=== PATIENT | female | born 1950 | race Caucasian/White ===

== ENCOUNTER → 2022-01-29 07:31 | Outpatient (CLI) | payer OTHER, SELFPAY ==
--- NOTE | 2022-01-29 | DI.CT.S_ITS ---
PROCEDURE: CT LUMBAR SPINE WO CON INDICATIONS: Spinal stenosis, lumbar region without TECHNIQUE: Noncontrast 3 mm thick sections acquired from the T12 level to the sacrum. Sagittal and coronal reformats were constructed. 0.8 mm straight axial images were reformatted. For radiation dose reduction, the following was used: automated exposure control. COMPARISON: [facility], CR, XR LUMBAR SPINE 2 OR 3 VIEWS, 03/10/2021, 15:40. [facility], CR, XR LUMBAR SPINE 2 OR 3 VIEWS, 11/03/2021, 11:48. [facility], MR, MR LUMBAR SPINE WITHOUT CONTRAST, 06/29/2021, 10:09. FINDINGS: Image quality: Excellent. Bones: No acute vertebral body compression fractures. There is a remote T12 fracture again seen, with approximately 50% loss of height centrally. Mild posterior displacement of fracture fragments can be seen, measuring 3-4 mm. No suspicious lytic or blastic bony lesions. No pars defects. Minimal retrolisthesis can be seen at T12-L1 and at L1-L2. Mild grade 1 L4-5 anterolisthesis is seen, without associated pars defects. Multiple levels irregularity and degenerative change can be seen between spinous processes. T11-T12: The disc space is overall well preserved. Endplate irregularity and sclerosis can be seen. Moderate bilateral neural foraminal narrowing can be seen, right worse than left. Mild central canal narrowing is seen. T12-L1: The disc space is well preserved. Posteriorly projected endplate osteophytes are seen. At least moderate bilateral neural foraminal narrowing can be seen. Moderate central canal narrowing is seen. L1-L2: The disc height is well preserved. Mild generalized disc bulge is seen. Moderate to severe bilateral neural foraminal narrowing can be seen. Mild central canal narrowing is seen. L2-L3: Mild loss of disc height is seen. Vacuum disc phenomenon is seen at this level. At least moderate disc bulge is seen. Posteriorly projected endplate osteophytes are seen. Mild facet joint hypertrophy is seen. Associated hypertrophy of the ligamentum flavum can be seen. Moderate bilateral neural foraminal narrowing is seen. At least moderate central canal narrowing is seen. L3-L4: The disc height is relatively well preserved. Vacuum disc phenomenon is seen at this level. Moderate disc bulge is seen, which is eccentric to the left. Moderate facet joint hypertrophy is seen. Moderate to severe bilateral neural foraminal narrowing can be seen, left worse than right. Moderate central canal narrowing is seen. L4-L5: The disc height is well preserved. Moderate generalized disc bulge is seen. Prominent facet hypertrophy is seen at this level. There is at least moderate bilateral neural foraminal narrowing seen. Moderate central canal narrowing is seen. L5-S1: The disc height is well preserved. There is at least moderate right-sided and moderate left-sided neural foraminal narrowing. There is at least moderate left-sided and mild right-sided neural foraminal narrowing seen at this level. Mild central canal narrowing is seen. Soft tissues: No retroperitoneal masses or hematomas. Visualized aorta is normal in caliber. Nonobstructing left-sided kidney stones are seen, with the largest measuring 5 mm and 275 Hounsfield units. Minimal colonic diverticulosis is seen, without findings of active diverticulitis. IMPRESSION: Multiple levels of lumbar spine degenerative change are seen, which are similar to the prior outside MRI. Remote T12 compression deformity. Incidental note is made of: Nonobstructing left-sided kidney stones Diverticulosis, without active diverticulitis Dictated by: Angel Luis Lau M.D. on 01/29/2022 at 8:50 Approved by: Angel Luis Lau M.D. on 01/29/2022 at 8:57
== END ==
PROVIDERS: PCP Family Medicine; Referring Provider Orthopaedic Surgery Orthopaedic Surgery of the Spine; Visit Provider Orthopaedic Surgery Orthopaedic Surgery of the Spine
DX: M48.061 Spinal stenosis, lumbar region without neurogenic claudication (principal); M43.8X4 Other specified deforming dorsopathies, thoracic region
CPT/HCPCS: 72131

== ENCOUNTER 2022-01-30 10:30 | Observation (INO) | payer OTHER, SELFPAY ==
[2022-01-20 09:44] VITALS: BMI 28.1
[2022-01-29] VITALS (18 sets, daily range): BP systolic 78–132; BP diastolic 34–82; PULSE 78–114; RESP 8–16; TEMP 36.1–36.6; O2SAT 85–98; BMI 28.1
[2022-01-29] MEDS: LACTATED RINGERS 1,000 ML 42 ML IV ×3 (08:56→16:23)
[2022-01-29 09:26] LABS: COVID19 -Nasal RAPID Negative (Negative)
--- NOTE | 2022-01-29 11:08 | PM.PREOP ---
Pre-operative Note COVID-19 COVID-19 status: Negative Result date/Date tested (Pos, Neg/Pending): 01/28/22 Criteria for continued procedure: Expected advancement of disease process, Possibility delay results in more complex future surgery or treatment, Increased loss of function, Continuing or worsening of significant or severe pain, Deterioration of the patient's condition or overall health and Delay expected to result in less-positive ultimate med/surg outcome Interval Note History & Physical reviewed/Exam performed by Physician: Yes Changes to H&P: No
--- NOTE | 2022-01-29 11:45 | PM.OP.1 ---
Operative Date/Time/Diagnoses Date of procedure: 01/29/22 Time of procedure: 12:00 Pre-op diagnosis: 1. L3-4, L4-5, L5-S1 spinal stenosis 2. Lumbar post laminectomy syndrome Post-op diagnosis: same Procedure & Clinicians Procedure: 1. L3-4, L4-5, L5-S1 Postero-lateral and posterior interbody fusion 2. L3-4, L4-5, L5-S1 interbody cage placement. 3. L3-4, L4-5, L5-S1 decompressive laminectomy with bilateral facetecomies 4. L3-4, L4-5, L5-S1 Posterior segmental instrumentation 5. Bowie of bone marrow from iliac crest 6. Utilization of microsurgical technique and operating microscope 7. Utilization of robotic navigation Same procedure as scheduled: Yes Indications: Patient has been having chronic back pain and worsening lumbar radiculopathy. Patient failed multiple conservative management with worsening pain weakness and numbness in her lower extremity. Patient has been having difficulty performing activity of daily living. After discussing risks benefits of treatment options, patient elected proceed with surgery. Surgeon: Erin Pacheco Corner Block Cutter: Juliana Hinton Click Yes if Unassisted: No Anesthesia Type: General Operative Notes Closure Type: primary Specimen(s): none sent Prosthetic devices, grafts, tissues, transplants, or devices: Globus CREO screws, Rise cages Applied: catheter Estimated Blood Loss (mL): 150 Blood products transfused: none Procedure in detail: Patient was seen in the preoperative area. Risks and benefits of the surgery was discussed with the patient. Informed consent was obtained from the patient and placed in the chart. Surgical site was marked. Patient was taken to the operative room. General anesthesia was administered. Prophylactic antibiotic was given to the patient less than 30 min before the incision was made. Patient was placed into a prone position on the Zachary table. Patient's back was then prepped and draped in the sterile fashion. Time-out was performed at this time. After patient was prepped and draped, patient's PSIS was palpated and marked bilaterally. Small 1 cm incision was made over the PSIS for placement of the reference probes. Two trocar was placed into the PSIS 1 on each side. The reference probe was attached to the trocar of the reference apparatus. At this time the C-arm imaging was used to confirm AP and lateral of L3-4, L4-L5, L5-S1 vertebrae and merged the C-arm imaging using the [employer] robotic navigation system with the CT of the lumbar spine. After successful merging was completed and confirmed, skin marker was used to ezra out the skin incision using the [employer] robotic arm. Bilateral incision was made at this time. Pre templated trajectory was used and guided using the [employer] robotic navigation system for bilateral L3, L4, L5, S1 pedicle screw placement. This was done by using the robotic arm to guide the high-speed bur to make a cortical entry point. Next a drill was placed also using the robotic arm and guided using the navigation system drilling partially through bilateral L3, L4, L5 and S1 pedicles. Next L3, L4, L5, S1 pedicle screws it was pre templated and measured was placed onto the power concrete mixing truck driver and inserted into the pedicles bilaterally. After all 8 screws were placed C-arm imaging was taken of both AP and lateral to confirm the placement. Excellent placement of the screws were confirmed and a matched precisely with the pre planned screw placement using the navigation system. MARs retractor was inserted using [employer] guidence. Globus MARS retractors was placed inside the incision and docked onto the L3, L4 and L5 lamina. Using microsurgical technique and operating microscope, a L3, L4, L5 laminectomy and L3-4, L4-5, L5-S1 facetectomy was performed using a Kerrison rongeur. Patient was found have severe lateral recess and neural foramen stenosis which was fully decompressed after the laminectomy facetectomy. More than 75% of the facets were removed during the process of decompression rendering L3-4, L4-5, L5-S1 level grossly unstable and required a fusion procedure at the same time. The disc space at L3-4, L4-5, L5-S1 was identified, and a total diskectomy was performed at L3-4, L4-5, L5-S1 level. The endplates were decorticated using a rasp and shaver. The total diskectomy and decortication was performed at L3-4, L4-5, L5-S1 level in order to to accomplish a L3-4, L4-5, L5-S1 fusion. The local bone from the laminectomy and facetectomy was saved for local bone grafting. After the total diskectomy and decortication was completed, Trifecta bone graft material was combined with local bone that was harvested earlier. At this time, a separate skin is incision was made over the iliac crest. A Jamshidi needle was inserted into the iliac crest through a separate skin incision. 5 cc of bone marrow aspiration was obtained through the separate skin incision using a Jamshidi needle from the iliac crest. The bone marrow aspiration was combined with local bone and the Trifecta bone grafting material. The bone grafting material was placed into the L3-4, L4-5, L5-S1 interbody space along with a expandable cage. The cage was expanded to its maximum height using the torque limiting screwdriver. The disc preparation as well as the cage insertion were also performed under navigation guidance. After the cage was placed, AP and lateral C-arm imaging was taken to confirm placement of the cage and excellent position was confirmed. Globus MARS retractor was inserted and docked onto the L3-4, L4-5, L5-S1 posterolateral gutter on the right side. Using the power drill, posterior-lateral decortication was performed at L3-4, L4-5, L5-S1 level until bleeding cortical bone was identified. The remaining bone grafting material was placed into the L3-4, L4-5, L5-S1 posterior lateral gutter he order to accomplish posterolateral fusion at the L3-4, L4-5, L5-S1 level. At this time the tulips were attached to the L3, L4, L5, S1 pedicle screw shanks. After measuring the length of the rods, they were inserted into the tulips of the pedicle screws and locked in place using locking caps and torque limiting screwdriver bilaterally. Total 6 caps and 2 titanium rods was used in order to complete the posterior instrumentation construct. After all the hardware was placed, and confirmed with AP and lateral C-arm imaging, the wound was then irrigated with sterile normal saline and packed with Ray-Baldev gauze for 3 min to accomplish hemostasis. After the gauze was removed the deep fascia was closed with #1 Vicryl suture. The subcutaneous layer was closed with 2-0 Vicryl. The skin was closed with skin lia. Patient tolerated the procedure well. There were no complications. Neuro monitoring system was used to monitor patient's neurologic status throughout entire procedure. There was no disturbance of the neural monitoring signals throughout the case. Complications: none Post-operative Condition: stable Disposition: PACU Plan for aftercare: Admit to inpatient hospital
--- NOTE | 2022-01-29 12:38 | SUR.OPER ---
Addendum entered by Marlene Cartwright R.N. 01/29/22 13:44: Gel between heels. Original Note: Prone on spine table, head in foam head support, padded chest and pelvic supports, gel pad at knees, lower legs supported by pillows; nipples, genitalia and toes free of pressure, arms secured on foam padded arm boards at <90 degrees abduction. Tape over blanket at thigh secured to table.
[2022-01-29] MEDS: ACETAMINOPHEN IV 1,000 MG/100 ML VIAL 400 MG IV (12:45)
[2022-01-29] MEDS: CEFAZOLIN 2 GM/20 ML SYRINGE IV ×2 (13:06→21:52)
--- NOTE | 2022-01-29 13:28 | SUR.OPER ---
During imaging before incision, there was an equipment connection issue between the robot & the c-arm, causing a 20 min delay. Issue was resolved.
[2022-01-29] MEDS: BUPIVACAINE LIPOSOME 266 MG/20 ML VIAL INJ (16:23)
[2022-01-29] MEDS: BUPIVACAINE 0.25% (PF) 30 ML, EPINEPHrine 0.3 MG INJ (16:23)
--- NOTE | 2022-01-29 16:44 | DI.RAD.S_ITS ---
PROCEDURE: XR LUMBAR SPINE 2-3V INDICATIONS: L3-4, L4-5, L5-S1 TLIF TECHNIQUE: 2 intraoperative fluoroscopic views of the lumbar spine were acquired. COMPARISON: None. FINDINGS: Intraoperative fluoroscopic images shows posterior fusion and intervertebral spacer placement at L3-4, L4-5 and L5-S1 levels. IMPRESSION: Fluoro guidance was provided intraoperatively for TLIF of L3-4 through L5-S1 levels. Dictated by: John Perry M.D. on 01/29/2022 at 16:52 Approved by: John Perry M.D. on 01/29/2022 at 16:52
[2022-01-29] MEDS: fentaNYL 100 MCG/2 ML INJ IV (17:10)
[2022-01-29] MEDS: HYDROMORPHONE 2 MG INJ IV ×3 (17:15→17:39)
[2022-01-29] MEDS: ONDANSETRON 4 MG/2 ML INJ IV (17:23)
[2022-01-29] MEDS: hydrOXYzine 50 MG/ML INJ 25 MG IM (17:31)
[2022-01-29] MEDS: OXYCODONE IR 5 MG TABLET PO (17:38)
[2022-01-29] MEDS: SENNOSIDES 8.6 MG TABLET 17.2 MG PO (21:50)
[2022-01-29] MEDS: SODIUM CHLORIDE 0.9% 1,000 ML 100 ML IV (21:50)
[2022-01-29] MEDS: ATORVASTATIN 20 MG TABLET PO (21:50)
[2022-01-29] MEDS: DOCUSATE 100 MG CAPSULE PO (21:51)
[2022-01-29] MEDS: GABAPENTIN 100 MG CAPSULE 200 MG PO (21:51)
[2022-01-29] MEDS: OXYCODONE IR 5 MG TABLET 10 MG PO (21:51)
[2022-01-29] MEDS: hydrOXYzine pamoate 25 MG CAPSULE PO (21:52)
[2022-01-30] VITALS (7 sets, daily range): BP systolic 96–116; BP diastolic 47–66; PULSE 70–92; RESP 15–20; TEMP 36.2–38.1; O2SAT 95–100
[2022-01-30] MEDS: SODIUM CHLORIDE 0.9% 1,000 ML 100 ML IV (03:16)
[2022-01-30] MEDS: CEFAZOLIN 2 GM/20 ML SYRINGE IV (04:22)
[2022-01-30 06:58] LABS: Hematocrit 31.7 % (36-46); Hemoglobin 10.9 g/dL (12.0-16.0)
[2022-01-30] MEDS: CITALOPRAM 10 MG TABLET 20 MG PO (08:30)
[2022-01-30] MEDS: DOCUSATE 100 MG CAPSULE PO ×2 (08:30→21:43)
[2022-01-30] MEDS: OXYCODONE IR 5 MG TABLET 10 MG PO ×5 (08:30→21:42)
[2022-01-30] MEDS: estradioL 1 MG TABLET 0.5 MG PO (08:36)
--- NOTE | 2022-01-30 09:40 | PT.IIE ---
Current Diagnoses Spondylolisthesis, lumbar region (01/29/22) Other spondylosis with radiculopathy, lumbosacral region (01/29/22) Spinal stenosis, lumbar region with neurogenic claudication (01/29/22) Surgery Performed Operation Date: 01/29/22 10:45 Actual Procedures p L3-4, L4-5, L5-S1 TLIF w. posterior instrumentation-Robot - Erin Pacheco MD Medical History (Last Reviewed 01/30/22 @ 11:53 by Juliana Hinton PA-C) Anxiety COVID-19 virus infection (~10/2021) Hearing impaired HLD (hyperlipidemia) HTN (hypertension) Neuropathy Osteoarthritis Sciatica Seasonal allergies Spinal stenosis Physical Therapy Inpatient Evaluation/Re-Eval M1 PT/OT-IP Prior Functional Status Start: 01/30/22 12:37 Freq: NEEDED Status: Active Protocol: Document 01/30/22 09:40 AB (Rec: 01/30/22 12:50 AB [id number]) Medical Review Prior Functional Status Medical History Reviewed Yes Communication able to make needs known Mobility and Gait pt stated that she is independent with all mobilities and ambulation without AD Social History Household Members spouse Living Arrangements House Number of Floors (Floors) One Floor Number of Stairs To Enter/Railing? no steps to enter Home Environment Standard Height Toilet,Walk in Shower,Built-In Shower Seat Home Equipment Front Wheel Walker,Four Wheel Walker,Bedside Commode,Hand Held Shower,Grab Bars In Shower Additional Social History Comment pt has an adjustable bed pt stated that she has a FWW for indoor use and 4WW for outdoor use M2 PT-IP Current Condition Start: 01/30/22 12:37 Freq: NEEDED Status: Active Protocol: Document 01/30/22 09:40 AB (Rec: 01/30/22 12:50 AB [id number]) Physical Therapy Current Condition Current Condition Evaluation Date 01/30/22 Treatment Diagnosis s/p L3-4,4-5, L5-S1 TLIF; difficulty in walking Onset Date 01/29/22 M3 PT-IP Subjective Start: 01/30/22 12:37 Freq: NEEDED Status: Active Protocol: Document 01/30/22 09:40 AB (Rec: 01/30/22 12:50 AB [email or web address]) Subjective Physical Therapy Visit Type Type Initial Evaluation Visit Start Time 09:40 Visit Stop Time 10:30 Total Visit Minutes 50 Number of COAL PASSER Visits 0 Physical Therapy Visit Comments Patient Comments agreeable to do PT Therapy Pain Assessment Pain When Pain Assessed At Rest Pain Present Pain Present Pain Reported Location Lower Back Intensity 2 Scale Used Numeric (0 - 10) Pain Management Techniques Apply Cold,Distraction, Modification of Treatment,Re- positioning,Timing of Activity with Medications Left Lower Back Scale Used Numeric (0 - 10) M4 PT-IP Mobility and Gait Start: 01/30/22 12:37 Freq: NEEDED Status: Active Protocol: Document 01/30/22 09:40 AB (Rec: 01/30/22 12:50 AB [id number]) PT-Bed Mobility Assessment Rolling Type of Rolling Log Rolling Level of Assist Minimal Assistance Supine to Sit Supine to Sit Moderate Assistance,1 Person Assistance PT-Transfer Assessment Sit to and From Stand Sit to and from Stand Minimal Assistance,1 Person Assistance,Use of Upper Extremities Equipment Transfer Assistive Device Gait Belt,Front Wheeled Walker Orthotic/Prosthetic Devices or Brace: No Transfers Transfer Destination Chair Transfer Technique ambulated Transfer Ability Level of Assist Minimal Assistance,1 Person Assistance,Use of Upper Extremities Comments Mobility Comments spouse in room with pt. educated pt and sposue on back precautions and log roll bed mobility. BP initially in sidelyin/38. repositioned pt to supine. BP : 106/52. completed supine to sit log roll mod A and max cues. pt able to sit on EOB SBA. BP: 111/45. pt sat for ~ 2 more minutes and BP checked again: 99/45. no c/o dizziness/lightheadedness. completed sit to stand min A and cues and ambulated ~ 10 ft using FWW min A and pt sat on chair. BP checked: 116/53. pt agreed to ambulate more. completed sit to stand from chair min A and max cues. pt is GRAYLING and also has difficulty following directions. ambulated in room using FWW ~ 40 ft min A and cues. pt agreed to sit on the chair. positioned. call light and table placed within reach. caregiver training set up at ~ 1 to 130 pm this afternoon. Gait Assessment Gait Gait Assistance Required: Minimum Assistance Distance (Feet) 40 Able to Maintain Weight Bearing Status Yes During Gait Assistive Devices Assistive Device Gait Belt,Front Wheeled Walker Orthotic/Prosthetic Devices or Brace: No Gait Deviations General Gait Pattern Decreased Stride Length, Decreased Feet Clearance Factors Limiting Gait Function Factors Limiting Gait Function Decreased Activity Tolerance, Decreased Strength,Difficulty Following Directions,Limited Range of Motion,Pain,Poor Balance,Poor Safety Awareness PT-Balance Assessment Sitting Balance and Reactions Static Sitting Balance Ability Good Dynamic Sitting Balance Ability Good Standing Balance and Reactions Static Standing Balance Ability Fair Dynamic Standing Balance Ability Fair Device Used FWW M5 PT-IP Objective Assessments Start: 01/30/22 12:37 Freq: NEEDED Status: Active Protocol: Document 01/30/22 09:40 AB (Rec: 01/30/22 12:50 AB [email or web address]) Orientation Orientation/Cognition Level of Alertness Alert Orientation Name,Situation Language Function Ability No Deficits Noted Safety Awareness Decreased Safety Awareness Memory Description Short Term Impaired Gross Range of Motion Lower Extremity ROM Assessment Within Functional Limits Strength Lower Extremity Strength Assessment Right Impaired Hip 3+/5 Knee 4-/5 Coordination Assessment Gross Coordination Gross Coordination WNL Sensation Assessment Sensation Gross Sensation WNL Muscle Tone Muscle Tone WNL Yes M6 PT-IP Treatment Start: 01/30/22 12:37 Freq: NEEDED Status: Active Protocol: Document 01/30/22 09:40 AB (Rec: 01/30/22 12:50 AB [email or web address]) Physical Therapy Treatment Education Education Provided Precautions,Weight Bearing Status,Post-Op Packet,Safety M7 PT-IP Assessment and Plan Start: 01/30/22 12:37 Freq: NEEDED Status: Active Protocol: Document 01/30/22 09:40 AB (Rec: 01/30/22 12:50 AB [email or web address]) PT Summary Assessment and Plan Potential Rehabilitation Potential Fair Status of Condition at Evaluation Evolving Summary Impairments Pain,ROM,Strength,Balance, Coordination,Sensation,Tone, Cognition,Bed Mobility, Transfers,Gait,Activity Tolerance Assessment Summary pt requiring mod A for bed mobility and min A for ambulation using FWW. caregiver training set up for this afternoon with spouse. will continue to assess progress for safe d/c. Goals Bed Mobility Goal Independent Transfer Goal Independent,Front Wheeled Walker Gait Goal Independent,Front Wheel Walker Gait Distance 200 Other Goals ambulation using 4WW SBA 250 ft Days to Meet Goals 5 Frequency of Treatment Frequency Of Treatment Twice a Day Treatment Plan Physical Therapy Treatment Plan Bed Mobility Training,Transfer Training,Gait Training, Therapeutic Exercise,Balance Retraining,Post Op Education, Discharge Planning,Hot or Cold Pack,Neuromuscular Re-ed, Coordination Retraining,Manual Therapy Precautions Lumbar Precautions Log Roll,No Twisting,Limit Bending,Lifting Restriction of 10 lbs,Gait Belt above Incisional Area Recommendations To Nursing Amount of Assist Needed 1 Person Assist Discharge Recommendations PT Discharge Recommendations Home with Assistance Transportation Needs at Discharge Private Vehicle
--- NOTE | 2022-01-30 11:51 | PM.PNPO.1 ---
Subjective Subjective Date Patient Seen: 01/30/22 Time Patient Seen: 11:52 Interval history: Patient is complaining of [id number] low back pain this morning. The oxy is helping significantly. She is working with physical therapy. Her is at bedside. She has not had her catheter out yet. Her plan is to discharge home tomorrow. She denies any new numbness or tingling, and is excited that her left lower extremity numbness and nerve pain is resolving since surgery yesterday. Exam Vital Signs (past 8 hours): - 01/30/22 04:41 01/30/22 07:49 01/30/22 08:37 Temperature 97.7 F 98.2 F Pulse Rate 88 78 Respiratory Rate 16 Blood Pressure 116/66 104/62 108/56 L Pulse Oximetry 96 01/30/22 11:05 Temperature 98.6 F Pulse Rate 70 Respiratory Rate 18 Blood Pressure 96/49 L Pulse Oximetry 100 Oxygen Delivery Method Room Air Oxygen Flow Rate 0 Narrative Exam Narrative: Pleasant 71-year-old female, resting comfortably in her chair, no acute distress. Her is at bedside. Dressings are clean dry intact, no surrounding erythema or induration. Bilateral lower extremity: Motor functions are grossly intact, sensation is grossly intact to light touch, calves are soft and nontender to palpation. Objective Labs Result Diagrams: 01/30/22 06:45 Labs: Laboratory Results - last 24 hr 01/30/22 06:45 Hgb 10.9 L Hct 31.7 L PFSH Medical History Anxiety COVID-19 virus infection (~10/2021) Hearing impaired HLD (hyperlipidemia) HTN (hypertension) Neuropathy Osteoarthritis Sciatica Seasonal allergies Spinal stenosis Surgical History History of hysterectomy Hx of foot surgery Hx of sinus surgery (1996) Hx of tonsillectomy S/P cervical spinal fusion (2007) Social History household members: spouse Smoking Status: Former smoker alcohol intake: current Assessment & Plan Post-op Postoperative Procedures: Procedures Operation Date: 01/29/22 10:45 Actual Procedure Side Surgeon p L3-4, L4-5, L5-S1 TLIF w. posterior instrumentation-Robot Erin Pacheco MD Postoperative day: 1 Postoperative status: doing well Postoperative status narrative: Stable status post L3-4, L4-5, L5-S1 TLIF Postoperative plan narrative: -mobilize with PT. Limit bending, lifting, twisting x6 weeks -continue with multimodal pain management -DC home tomorrow, once cleared by PT Quality VTE Deep Vein Thrombosis/Pulmonary Embolism Present on Admission: No
--- NOTE | 2022-01-30 13:26 | PT.IPTN ---
Current Diagnoses Spondylolisthesis, lumbar region (01/29/22) Other spondylosis with radiculopathy, lumbosacral region (01/29/22) Spinal stenosis, lumbar region with neurogenic claudication (01/29/22) Surgery Performed Operation Date: 01/29/22 10:45 Actual Procedures p L3-4, L4-5, L5-S1 TLIF w. posterior instrumentation-Robot - Erin Pacheco MD Physical Therapy Treatment Note M2 PT-IP Current Condition Start: 01/30/22 12:37 Freq: NEEDED Status: Active Protocol: Document 01/30/22 09:40 AB (Rec: 01/30/22 12:50 AB [id number]) Physical Therapy Current Condition Current Condition Evaluation Date 01/30/22 Treatment Diagnosis s/p L3-4,4-5, L5-S1 TLIF; difficulty in walking Onset Date 01/29/22 M3 PT-IP Subjective Start: 01/30/22 12:37 Freq: NEEDED Status: Active Protocol: Document 01/30/22 13:26 AB (Rec: 01/30/22 15:06 AB [email or web address]) Subjective Physical Therapy Visit Type Type Treatment Note Visit Start Time 13:26 Visit Stop Time 13:56 Total Visit Minutes 30 Number of YARD JACKER Visits 0 Physical Therapy Visit Comments Patient Comments agreeable to do PT Therapy Pain Assessment Pain When Pain Assessed At Rest Pain Present Pain Present Pain Reported Location Lower Back Intensity 5 Scale Used Numeric (0 - 10) Pain Management Techniques Distraction,Modification of Treatment,Re-positioning, Timing of Activity with Medications M4 PT-IP Mobility and Gait Start: 01/30/22 12:37 Freq: NEEDED Status: Active Protocol: Document 01/30/22 13:26 AB (Rec: 01/30/22 15:06 AB [id number]) PT-Bed Mobility Assessment Rolling Type of Rolling Log Rolling Level of Assist Standby Assistance Supine to Sit Supine to Sit Moderate Assistance,1 Person Assistance Sit to Supine Sit to Supine Minimal Assistance PT-Transfer Assessment Sit to and From Stand Sit to and from Stand Contact Guard Assistance, Minimal Assistance,1 Person Assistance Equipment Transfer Assistive Device Gait Belt,Front Wheeled Walker Orthotic/Prosthetic Devices or Brace: No Comments Mobility Comments caregiver training conducted. educated spouse on how to assist pt and how to use safety belt. pt completed supine to sit and spouse assisted pt mod A. spouse was able to put safety belt on pt and assisted pt with sit to stand and ambulation in room using FWW ~ 60 ft. pt requested to go back to bed and completed sit to supine SBA. positioned pt in bed. call light and table placed within reach. Gait Assessment Gait Gait Assistance Required: Contact Guard Assist,1 Person Assist Distance (Feet) 60 Able to Maintain Weight Bearing Status No During Gait Assistive Devices Assistive Device Gait Belt,Front Wheeled Walker Orthotic/Prosthetic Devices or Brace: No Gait Deviations General Gait Pattern Decreased Stride Length, Decreased Feet Clearance Factors Limiting Gait Function Factors Limiting Gait Function Decreased Activity Tolerance, Decreased Strength,Difficulty Following Directions,Limited Range of Motion,Pain,Poor Balance,Poor Safety Awareness M5 PT-IP Objective Assessments Start: 01/30/22 12:37 Freq: NEEDED Status: Active Protocol: Document 01/30/22 09:40 AB (Rec: 01/30/22 12:50 AB [id number]) Orientation Orientation/Cognition Level of Alertness Alert Orientation Name,Situation Language Function Ability No Deficits Noted Safety Awareness Decreased Safety Awareness Memory Description Short Term Impaired Gross Range of Motion Lower Extremity ROM Assessment Within Functional Limits Strength Lower Extremity Strength Assessment Right Impaired Hip 3+/5 Knee 4-/5 Coordination Assessment Gross Coordination Gross Coordination WNL Sensation Assessment Sensation Gross Sensation WNL Muscle Tone Muscle Tone WNL Yes M6 PT-IP Treatment Start: 01/30/22 12:37 Freq: NEEDED Status: Active Protocol: Document 01/30/22 13:26 AB (Rec: 01/30/22 15:06 [email or web address]) Physical Therapy Treatment Education Education Provided Precautions,Safety M7 PT-IP Assessment and Plan Start: 01/30/22 12:37 Freq: NEEDED Status: Active Protocol: Document 01/30/22 13:26 AB (Rec: 01/30/22 15:06 [email or web address]) PT Summary Assessment and Plan Potential Rehabilitation Potential Good Summary Impairments Pain,ROM,Strength,Balance, Coordination,Sensation,Tone, Cognition,Bed Mobility, Transfers,Gait,Activity Tolerance Progress Towards Goals Progressing Toward Goals Assessment Summary caregiver training conducted and spouse was able to assist pt safely. will continue to assess progress. pt plans to go home and spouse to assist her. Goals Bed Mobility Goal Independent Transfer Goal Independent,Front Wheeled Walker Gait Goal Independent,Front Wheel Walker Gait Distance 200 Other Goals ambulation using 4WW SBA 250 ft Days to Meet Goals 5 Frequency of Treatment Frequency Of Treatment Twice a Day Treatment Plan Physical Therapy Treatment Plan Bed Mobility Training,Transfer Training,Gait Training, Therapeutic Exercise,Balance Retraining,Post Op Education, Discharge Planning,Hot or Cold Pack,Neuromuscular Re-ed, Coordination Retraining,Manual Therapy Precautions Lumbar Precautions Log Roll,No Twisting,Limit Bending,Lifting Restriction of 10 lbs,Gait Belt above Incisional Area Recommendations To Nursing Amount of Assist Needed 1 Person Assist Discharge Recommendations PT Discharge Recommendations Home with Assistance Transportation Needs at Discharge Private Vehicle
--- NOTE | 2022-01-30 15:02 | OT.IP.EVAL ---
Current Diagnoses Spondylolisthesis, lumbar region (01/29/22) Other spondylosis with radiculopathy, lumbosacral region (01/29/22) Spinal stenosis, lumbar region with neurogenic claudication (01/29/22) Surgery Performed Operation Date: 01/29/22 10:45 Actual Procedures p L3-4, L4-5, L5-S1 TLIF w. posterior instrumentation-Robot - Erin Pacheco MD Past Medical History (Last Reviewed 01/30/22 @ 11:53 by Juliana Hinton PA-C) Anxiety COVID-19 virus infection (~10/2021) Hearing impaired History of hysterectomy HLD (hyperlipidemia) HTN (hypertension) Hx of foot surgery Hx of sinus surgery (1996) Hx of tonsillectomy Neuropathy Osteoarthritis S/P cervical spinal fusion (2007) Sciatica Seasonal allergies Spinal stenosis Surgical History (Last Reviewed 01/30/22 @ 11:53 by Juliana Hinton PA-C) History of hysterectomy Hx of foot surgery Hx of sinus surgery (1996) Hx of tonsillectomy S/P cervical spinal fusion (2007) Occupational Therapy Inpatient Evaluation/Re-Eval M1 PT/OT-IP Prior Functional Status Start: 01/30/22 12:37 Freq: NEEDED Status: Active Protocol: Document 01/30/22 16:23 [facility] (Rec: 01/30/22 16:50 [facility] [id number]) Medical Review Prior Functional Status Medical History Reviewed Yes Communication able to make needs known Mobility and Gait pt stated that she is independent with all mobilities and ambulation without AD Activities of Daily Living and IADL's Independent but had pain. Social History Household Members spouse Living Arrangements House Number of Floors (Floors) One Floor Number of Stairs To Enter/Railing? no steps to enter Home Environment Standard Height Toilet,Walk in Shower,Built-In Shower Seat Home Equipment Front Wheel Walker,Four Wheel Walker,Bedside Commode,Hand Held Shower,Grab Bars In Shower Additional Social History Comment pt has an adjustable bed pt stated that she has a FWW for indoor use and 4WW for outdoor use M2 OT-IP Current Condition Start: 01/30/22 16:22 Freq: Status: Active Protocol: Document 01/30/22 16:23 [facility] (Rec: 01/30/22 16:50 [facility] [id number]) Occupational Therapy Current Condition Current Condition Evaluation Date 01/30/22 Treatment Diagnosis S/p L3-4, L4-5, L5-S1 TLIF with posterior inst Diagnosis Onset Date 01/29/22 M3 OT- IP Subjective and Pain Start: 01/30/22 16:22 Freq: Status: Active Protocol: Document 01/30/22 16:23 [facility] (Rec: 01/30/22 16:50 [facility] [id number]) OT- Subjective Occupational Therapy Visit Type Type Initial Evaluation Visit Start Time 14:17 Visit Stop Time 15:02 Total Visit Minutes 45 Occupational Therapy Visit Comments Patient Comments Pt initially not wanting to get up and then agreed. Patient/Caregiver Goals To go home. OT Pain Assessment Pain When Pain Assessed At Rest Pain Present Pain Present Pain Reported Location Lower Back Intensity 3 Scale Used Numeric (0 - 10) M4 OT- IP ADL's Start: 01/30/22 16:22 Freq: Status: Active Protocol: Document 01/30/22 16:23 [facility] (Rec: 01/30/22 16:50 [facility] [id number]) OT [id number] Comments OT Self-Feeding Comments Not at meal OT ADL-Grooming General Evaluation Grooming Ability Standby Assistance OT ADL-Oral Care Comments Oral Care Comments Educated to spit into a cup versus hinge at her hips to best follow her back precautions. OT ADL-Dressing Comments OT Dressing Comments Educated pt use of rippler or to assist. OT ADL-Toileting Comments OT Toileting Comments Pt usually reaches from the front to wipe and able to try to to wipe form the back and able to reach appropriately while standing. OT ADL-Bathing Comments OT Bathing Comments Pt would benefit from a shower chair. M5 OT- IP IADL's Start: 01/30/22 16:22 Freq: Status: Active Protocol: Document 01/30/22 16:23 [facility] (Rec: 01/30/22 16:50 [facility] [id number]) OT-Instrumental Activities of Daily Living Home Safety Awareness Home Safety Comments Pt has a supportive that can assist her at home. M6 OT- IP Functional Cognition Start: 01/30/22 16:22 Freq: Status: Active Protocol: Document 01/30/22 16:23 [facility] (Rec: 01/30/22 16:50 [facility] [id number]) Cognitive Factors Limiting Selfcare Function Cognitive Ability Level of Alertness Alert Patient Orientation Name,Age,Birthday,Month,Date, Year,Day of Week,Place, Situation Attention Span Ability Capable of Focused Attention, Capable of Sustained Attention Ability to Follow Commands Able to Follow One Step Commands Cognitive Comments Cognitive Assessment Comments Pt able to recall her back precautions and needing cues to incorporate especially during log rolling needs. OT- Vision and Hearing OT- Vision Assessment Visual Acuity Glasses All The Time M7 OT- IP Mobility and Balance Start: 01/30/22 16:22 Freq: Status: Active Protocol: Document 01/30/22 16:23 [facility] (Rec: 01/30/22 16:50 [facility] [id number]) OT- Bed Mobility Assessment Supine to Sit Supine to Sit Assist Moderate Assistance Sit to Supine Sit to Supine Assist Moderate Assistance OT-Transfer Assessment Sit to and From Stand Sit to and from Stand Minimal Assistance Transfers Transfer Ability Minimal Assistance Technique Transfer Destination Bed Transfer Technique Stand Step Pivot Devices Transfer Assistive Devices Gait Belt,Front Wheeled Walker Comments Mobility Comments Able to train pt's on bed mobility and pt's will still continue to benefit from more training. Pt states her bed is very high and thinking that she may need a step stool at home. Able to practice more with pt' s more on log rolling on him and pt's able to practice with OT for proper hand placement and auto body repair estimator of how to assist for bed mobility needs. Sitting Balance and Reactions Static Sitting Balance Ability Good Dynamic Sitting Balance Ability Good Standing Balance and Reactions Static Standing Balance Ability Fair Dynamic Standing Balance Ability Fair M8 OT- IP Objective Assessments Start: 01/30/22 16:22 Freq: Status: Active Protocol: Document 01/30/22 16:23 [facility] (Rec: 01/30/22 16:50 [facility] [id number]) OT-Muscle Tone Assessment Muscle Tone WNL Yes M9 OT- IP Assessment and Plan Start: 01/30/22 16:22 Freq: Status: Active Protocol: Document 01/30/22 16:23 [facility] (Rec: 01/30/22 16:50 [facility] [id number]) OT Summary Assessment and Plan Potential Rehabilitation Potential Good Analytic Complexity at Evaluation Low Summary OT Impairments Balance,Functional Mobility, Dressing,Toileting,Bathing, Toilet Transfers,Shower Transfers,Activity Tolerance Progress Towards Goals Progressing Toward Goals Assessment Summary Pt low complexity and main barriers are pt feeling a little whoozy when up and legs get unsteady when she tires. Pt now needing one person assist for ADl and mobility needs. Pt's has initiated caregiver training and will continue to benefit from more. Pending training, pt hopes to go home with her . Goals Grooming Goal Independent Dressing Goal Minimal Assistance Toileting Goal Independent Bathing Goal Standby Assistance Toilet Transfer Goal Independent Shower Transfer Goal Independent Patient/Caregiver Education Goal Demonstrate Post-Op Precautions,Caregiver Independent Assisting Patient Days to Meet Goals 5 Frequency of Treatment Frequency Of Treatment Once a Day Treatment Plan OT Treatment Plan ADL Training,Functional Mobility,Patient/Family Education,Discharge Planning Other Treatment Recommendations and Next shower if still here Treatment Focus Discharge Recommendations OT Discharge Recommendations Home with 24/ Assist Available Home Equipment Needs shower chair Transportation Needs at Discharge Private Vehicle
--- NOTE | 2022-01-30 15:35 | CM.DANOTE ---
Initial Discharge Plan Assessment: Case received, EMR reviewed. 71 year old female admitted yesterday to care of hospitalist team. PCP: Dr Balaji Wilkinson Surgeon: Erin Pacheco Payer: [facility] Medicare Advantage, self pay Patient underwent TLIF yesterday and is POD 1 today and is progressing. Per PT notes patient has sufficient DME in home and upon return home her Gregory will be primary caregiver. PT made visit this afternoon for caregiver training. P: Not anticipating needs from CM team, will continue to follow closely as needs arise. Patient to return home tomorrow to care of spouse who will transport in private vehicle. She will follow up with surgeon as directed. Discharge Planning/Care Management CM Discharge Assessment Start: 01/30/22 15:31 Freq: Status: Active Protocol: Document 01/30/22 15:32 (Rec: 01/30/22 15:35 [id number]) Discharge Planning Assessment Advance Directives? Yes Advance Directives on File No History Provided By Patient Prior Living Arrangements House Household Members spouse Type of transporation used prior to Relies on Others admit Independent with ADL's Yes Is patient alert and oriented? Yes Needs Assistance With Home Chores / Shopping Caregiver for Another No DME Already Rented / Owned Hospital Bed,FWW / Walker Barriers to Discharge No Comment to be caregiver Discharge Plan Home Referrals Initiated None needed Pre-Anesthesia Assessment Start: 01/20/22 09:44 Freq: Status: Active Protocol: Document 01/20/22 09:44 [facility] (Rec: 01/20/22 10:32 [facility] [id number]) Pre-Anesthesia Assessment Patient Information Reviewed Via Phone Assessment Assessment Completed With Patient H&P Completed Within 30 Days Yes Diagnostic Results BMP/CMP,CBC,EKG Comment Outside labs/ECG scanned, COVID screen @[facility] 01/27/22 Primary Care Provider Balaji Wilkinson Seen Specialist in Last 12 Months Yes Specialist Seen Orthopedist Primary Language Albanian Vehicle Leasing And Rental Manager Required No Height 160.02 cm Weight 72.121 kg Body Mass Index (BMI) 28.1 Hearing Ability Hard of Hearing,Use of Hearing Aid Visual Assist Glasses Dentition Type Teeth, Natural Present Barriers to Learning None Hx Anesthesia Reactions Yes: PONV Hx Family Anesthesia Reaction No Hx Malignant Hyperthermia No Hx Blood Transfusions No Anesthesia Review Requested No alcohol intake current alcohol intake frequency a few times a month Smoking Status Former smoker how long ago did patient quit smoking Quit 40 years ago Substance Use Type does not use Pain Present Pain Reported Musculoskeletal Symptoms Back Pain,Muscle Weakness, Radiating Pain into Limb History of Falling (Recent or History of No ) Patient is completely paralyzed or No completely immobile Comment My knee gives out on me Is patient on oxygen? Yes Does patient have FRAGOSO/SOB No Hx Sleep Apnea No Currently Taking a Beta Coni No Hx Chest Pain No Hx SOB No Hx Syncope or Dizziness No Anti-Coagulant Therapy No Has a Lockstitch Sleeve Setter No Cardiac Testing No Hx Pacemaker/ICD No Pacemaker Rep Required? No Cardiac Clearance Received Not Applicable Diet Type At Home Regular dysphagia No Gastrointestinal Symptoms Constipation Urinary Catheter Present No Hx Urinary Self Catheterization No Diabetes No Patient No Lactating No Hx Drug Resistant Organism No Presence of External or Internal Medical Yes: Cervical spine, hearing Devices aids, right breast clip Have you had any close contact with Yes: Pt had COVID October someone diagnosed with COVID-19? 2021-ill for 2 weeks, not hospitalized Are you experiencing any of these No symptoms symptoms? Received a COVID vaccine? Yes Received all doses? Yes Marital Status Lives With spouse Prior Living Arrangements House Number of Floors (Floors) One Floor Support System Spouse Does the Patient Have Assistance After Yes Surgery Patient Discharge Plan Description Return Home Comment Pt advised 2 days length of stay per surgeon Feels Safe in Current Environment Yes Been Physically Hurt or Threatened By a No Person in Current Environment Do you have thoughts of harming yourself None or others? Are you currently considering suicide? No Do you have a plan to hurt yourself or No Plan others? Do You Have Any Spiritual Beliefs That No May Affect Your HC Choices? Do You Have Any Cultural Practices That No May Affect Your HC Choices? Comment Druze Who Can We Speak to About Patient's Care Family, friends Identifying Code for Release of Patient Declines to issue Information Health Care Proxy/Next of Kin Gregory () Health Care Proxy or cell: [phone] Emergency Contact Name FATIMAH (Mom) Emergency Contact Advance Directives? Yes Advance Directives on File No Requested Patient Bring Advanced Yes Directives DOS Power of Iuss Master Analyst No PAC Instructions Durable medical equipment, Medications to take/avoid, Nasal antibiotic,No ETOH/ petroleum product on skin DOS, NPO,Pre-surgical wash,Sensory aids,Sturdy shoes/comfortable clothes,Do not bring valuables and remove jewelry
[2022-01-30] MEDS: ACETAMINOPHEN 325 MG TABLET 650 MG PO (18:16)
[2022-01-30] MEDS: ATORVASTATIN 20 MG TABLET PO (21:42)
[2022-01-30] MEDS: hydrOXYzine pamoate 25 MG CAPSULE PO (21:42)
[2022-01-30] MEDS: GABAPENTIN 100 MG CAPSULE 200 MG PO (21:43)
[2022-01-30] MEDS: SENNOSIDES 8.6 MG TABLET 17.2 MG PO (21:43)
[2022-01-31] VITALS (7 sets, daily range): BP systolic 104–122; BP diastolic 45–83; PULSE 90–98; RESP 18–20; TEMP 36.8–37.8; O2SAT 92–98
[2022-01-31] MEDS: OXYCODONE IR 5 MG TABLET 10 MG PO ×4 (05:17→20:20)
[2022-01-31] MEDS: ACETAMINOPHEN 325 MG TABLET 650 MG PO ×3 (07:18→22:56)
[2022-01-31] MEDS: DOCUSATE 100 MG CAPSULE PO ×2 (09:16→20:21)
[2022-01-31] MEDS: CITALOPRAM 10 MG TABLET 20 MG PO (09:19)
[2022-01-31] MEDS: estradioL 1 MG TABLET 0.5 MG PO (09:21)
[2022-01-31] MEDS: hydroCHLOROthiazide 25 MG TABLET PO (09:21)
--- NOTE | 2022-01-31 10:43 | PM.PN.1 ---
Exam Vital Signs (past 8 hours): - 01/31/22 05:00 01/31/22 07:18 01/31/22 08:53 Temperature 100.0 F H 100.0 F H 99.3 F Pulse Rate 97 H 98 H Respiratory Rate 18 20 Blood Pressure 119/57 L 109/45 L Pulse Oximetry 98 92 Oxygen Delivery Method Room Air Oxygen Flow Rate 0 Objective Labs Result Diagrams: 01/30/22 06:45 PFSH Medical History Anxiety COVID-19 virus infection (~10/2021) Hearing impaired HLD (hyperlipidemia) HTN (hypertension) Neuropathy Osteoarthritis Sciatica Seasonal allergies Spinal stenosis Surgical History History of hysterectomy Hx of foot surgery Hx of sinus surgery (1996) Hx of tonsillectomy S/P cervical spinal fusion (2007) Social History household members: spouse Smoking Status: Former smoker alcohol intake: current Assessment & Plan Assessment & Plan narrative: Patient is POD#2 s/p L3-s1 TLIF. Patient is progressing with PT. Patient would like to go home once she is deemed safe for discharge, possibly with home health. On exam, she's neuro intact and her dressing is clean dry intact. She will continue working with PT/OT for mobility training targeting possible discharge tomorrow to home with home health. Will reassess in AM. I will discontinue her boateng catheter today. Time Spent With Patient Critical Care time: I spent a total of [] minutes of critical care time on this patient's care today; this time is exclusive of procedural time. Quality VTE Deep Vein Thrombosis/Pulmonary Embolism Present on Admission: No
--- NOTE | 2022-01-31 11:14 | PT.IPTN ---
Current Diagnoses Spondylolisthesis, lumbar region (01/30/22) Other spondylosis with radiculopathy, lumbosacral region (01/30/22) Spinal stenosis, lumbar region with neurogenic claudication (01/30/22) Surgery Performed Operation Date: 01/29/22 10:45 Actual Procedures p L3-4, L4-5, L5-S1 TLIF w. posterior instrumentation-Robot - Erin Pacheco MD Physical Therapy Treatment Note M2 PT-IP Current Condition Start: 01/30/22 12:37 Freq: NEEDED Status: Active Protocol: Document 01/30/22 09:40 AB (Rec: 01/30/22 12:50 AB [id number]) Physical Therapy Current Condition Current Condition Evaluation Date 01/30/22 Treatment Diagnosis s/p L3-4,4-5, L5-S1 TLIF; difficulty in walking Onset Date 01/29/22 M3 PT-IP Subjective Start: 01/30/22 12:37 Freq: NEEDED Status: Active Protocol: Document 01/31/22 11:14 AW (Rec: 01/31/22 11:41 AW [id number]) Subjective Physical Therapy Visit Type Type Treatment Note Visit Start Time 10:48 Visit Stop Time 11:14 Total Visit Minutes 26 Notes Spouse, Gregory, was present and completed caregiver training. Number of EMERGENCY DOCTOR Visits 0 Physical Therapy Visit Comments Patient Comments agreeable to do PT Therapy Pain Assessment Pain When Pain Assessed During Mobility Pain Present Pain Present Pain Reported Location Lower Back Intensity 10 Scale Used 2 at rest; 10 during transitions Pain Management Techniques Distraction,Modification of Treatment,Re-positioning, Timing of Activity with Medications M4 PT-IP Mobility and Gait Start: 01/30/22 12:37 Freq: NEEDED Status: Active Protocol: Document 01/31/22 11:14 AW (Rec: 01/31/22 11:41 AW [id number]) PT-Bed Mobility Assessment Rolling Type of Rolling Log Rolling Level of Assist Standby Assistance Supine to Sit Supine to Sit Minimal Assistance,Moderate Assistance,1 Person Assistance PT-Transfer Assessment Sit to and From Stand Sit to and from Stand Contact Guard Assistance,1 Person Assistance,Use of Upper Extremities Equipment Transfer Assistive Device Gait Belt,Front Wheeled Walker Orthotic/Prosthetic Devices or Brace: No Transfers Transfer Destination Chair Transfer Technique ambulated with FWW Transfer Ability Level of Assist Contact Guard Assistance,1 Person Assistance,Use of Upper Extremities Comments Mobility Comments PT provided cues and min/mod A for log roll bed mobility. Spouse assisted pt to EOB CGA and applied the gait belt with min cues from PT. Spouse assisted CGA as pt stood and walked around the room with FWW CGA before transferring to the chair. Pt agreed to practice sit to stand, completing 3 reps CGA and cues for hip hinge. Pt stood and walked 140 feet with FWW CGA before returning to the room. She stood at the sink and demonstrated good awareness of precautions as she completed grooming tasks with spouse providing CGA for balance. Pt transferred to the chair and was left with call light in reach. Gait Assessment Gait Gait Assistance Required: Contact Guard Assist,1 Person Assist Distance (Feet) 140 Able to Maintain Weight Bearing Status Yes During Gait Assistive Devices Assistive Device Gait Belt,Front Wheeled Walker Orthotic/Prosthetic Devices or Brace: No Gait Deviations General Gait Pattern Decreased Stride Length, Decreased Feet Clearance Factors Limiting Gait Function Factors Limiting Gait Function Decreased Activity Tolerance, Decreased Strength,Limited Range of Motion,Pain Comments Gait Comments It feels good to walk. Pt appropriately took small steps in turns to avoid any twisting. PT-Balance Assessment Sitting Balance and Reactions Static Sitting Balance Ability Good Dynamic Sitting Balance Ability Good Standing Balance and Reactions Static Standing Balance Ability Good Dynamic Standing Balance Ability Good Device Used FWW M5 PT-IP Objective Assessments Start: 01/30/22 12:37 Freq: NEEDED Status: Active Protocol: Document 01/30/22 09:40 AB (Rec: 01/30/22 12:50 AB [id number]) Orientation Orientation/Cognition Level of Alertness Alert Orientation Name,Situation Language Function Ability No Deficits Noted Safety Awareness Decreased Safety Awareness Memory Description Short Term Impaired Gross Range of Motion Lower Extremity ROM Assessment Within Functional Limits Strength Lower Extremity Strength Assessment Right Impaired Hip 3+/5 Knee 4-/5 Coordination Assessment Gross Coordination Gross Coordination WNL Sensation Assessment Sensation Gross Sensation WNL Muscle Tone Muscle Tone WNL Yes M6 PT-IP Treatment Start: 01/30/22 12:37 Freq: NEEDED Status: Active Protocol: Document 01/31/22 11:14 AW (Rec: 01/31/22 11:41 AW [id number]) Physical Therapy Treatment Education Education Provided Precautions,Safety M7 PT-IP Assessment and Plan Start: 01/30/22 12:37 Freq: NEEDED Status: Active Protocol: Document 01/31/22 11:14 AW (Rec: 01/31/22 11:41 AW [id number]) PT Summary Assessment and Plan Potential Rehabilitation Potential Good Summary Impairments Pain,ROM,Strength,Balance, Coordination,Sensation,Tone, Cognition,Bed Mobility, Transfers,Gait,Activity Tolerance Progress Towards Goals Progressing Toward Goals Assessment Summary Pt's spouse was able to provide all necessary assist with OOB mobility but would benefit from continued training with bed mobility. Pt states her bed is quite high off the floor and she may need to use a step to get in. Pt does have the option of sleeping in a recliner at home and this PT recommended such initially. Pt is safe to discharge home with her spouse to assist once medically stable. Goals Bed Mobility Goal Independent Transfer Goal Independent,Front Wheeled Walker Gait Goal Independent,Front Wheel Walker Gait Distance 200 Other Goals ambulation using 4WW SBA 250 ft Days to Meet Goals 5 Frequency of Treatment Frequency Of Treatment Twice a Day Treatment Plan Physical Therapy Treatment Plan Bed Mobility Training,Transfer Training,Gait Training, Therapeutic Exercise,Balance Retraining,Post Op Education, Discharge Planning,Hot or Cold Pack,Neuromuscular Re-ed, Coordination Retraining,Manual Therapy Other Recommendations and Next Treatment bed mobility with spouse. Focus trial step stood for accessing bed Precautions Lumbar Precautions Log Roll,No Twisting,Limit Bending,Lifting Restriction of 10 lbs,Gait Belt above Incisional Area Recommendations To Nursing Amount of Assist Needed Standby Assistance Discharge Recommendations PT Discharge Recommendations Home with Assistance Transportation Needs at Discharge Private Vehicle
--- NOTE | 2022-01-31 16:20 | PT-IP ANOTE ---
Attempted to meet with pt for PM treatment but pt was sleeping soundly and spouse was no longer in the room. Will follow up Tuesday AM to continue caregiver training prior to anticipated discharge.
--- NOTE | 2022-01-31 17:35 | CM.DPC ---
DCP/Continued: Reviewed chart. Met with patient this afternoon to discuss d/c plan. Patient reports that she hopes to d/c home tomorrow. Patient has supportive spouse that has done caregiver training. Patient denies need for home health. P: Home when stable. MARTINA
[2022-01-31] MEDS: GABAPENTIN 100 MG CAPSULE 200 MG PO (20:20)
[2022-01-31] MEDS: SENNOSIDES 8.6 MG TABLET 17.2 MG PO (20:20)
[2022-01-31] MEDS: ATORVASTATIN 20 MG TABLET PO (20:21)
[2022-02-01 03:30] VITALS: BP 123/61; PULSE 87; RESP 16; TEMP 37.1; O2SAT 96
[2022-02-01] MEDS: OXYCODONE IR 5 MG TABLET 10 MG PO ×3 (03:31→12:38)
[2022-02-01] MEDS: MAGNESIUM HYDROXIDE 30 ML UDC PO (03:36)
[2022-02-01 07:20] VITALS: BP 114/59; PULSE 91; RESP 18; TEMP 36.9; O2SAT 94
[2022-02-01] MEDS: CITALOPRAM 10 MG TABLET 20 MG PO (08:11)
[2022-02-01] MEDS: DOCUSATE 100 MG CAPSULE PO (08:11)
[2022-02-01] MEDS: polyethylene glycoL 3350 17 GM POWD.PACK PO (08:11)
[2022-02-01] MEDS: ACETAMINOPHEN 325 MG TABLET 650 MG PO (08:12)
[2022-02-01] MEDS: estradioL 1 MG TABLET 0.5 MG PO (08:13)
[2022-02-01] MEDS: hydroCHLOROthiazide 25 MG TABLET PO (08:15)
--- NOTE | 2022-02-01 10:53 | PM.PN.1 ---
Exam Vital Signs (past 8 hours): - 02/01/22 03:30 02/01/22 07:20 Temperature 98.8 F 98.4 F Pulse Rate 87 91 H Respiratory Rate 16 18 Blood Pressure 123/61 114/59 L Pulse Oximetry 96 94 Oxygen Delivery Method Room Air Oxygen Flow Rate 0 Objective Labs Result Diagrams: 01/30/22 06:45 PFSH Medical History Anxiety COVID-19 virus infection (~10/2021) Hearing impaired HLD (hyperlipidemia) HTN (hypertension) Neuropathy Osteoarthritis Sciatica Seasonal allergies Spinal stenosis Surgical History History of hysterectomy Hx of foot surgery Hx of sinus surgery (1996) Hx of tonsillectomy S/P cervical spinal fusion (2007) Social History household members: spouse Smoking Status: Former smoker alcohol intake: current Assessment & Plan Assessment & Plan narrative: POD#3 s/p L3-S1 TLIF. Progressing well with PT. Cleared for d/c to home today. On exam, dressing clean dry intact. Patient showed unassisted and has done well. Will d/c home today. Time Spent With Patient Critical Care time: I spent a total of [] minutes of critical care time on this patient's care today; this time is exclusive of procedural time. Quality VTE Deep Vein Thrombosis/Pulmonary Embolism Present on Admission: No
--- NOTE | 2022-02-01 11:55 | PT.IPTN ---
Current Diagnoses Spondylolisthesis, lumbar region (01/30/22) Other spondylosis with radiculopathy, lumbosacral region (01/30/22) Spinal stenosis, lumbar region with neurogenic claudication (01/30/22) Surgery Performed Operation Date: 01/29/22 10:45 Actual Procedures p L3-4, L4-5, L5-S1 TLIF w. posterior instrumentation-Robot - Erin Pacheco MD Physical Therapy Treatment Note M2 PT-IP Current Condition Start: 01/30/22 12:37 Freq: NEEDED Status: Discharge Protocol: Document 02/01/22 11:10 SP (Rec: 02/01/22 17:00 SP [id number]) Physical Therapy Current Condition Current Condition Evaluation Date 01/30/22 Treatment Diagnosis s/p L3-4,4-5, L5-S1 TLIF; difficulty in walking Onset Date 01/29/22 M3 PT-IP Subjective Start: 01/30/22 12:37 Freq: NEEDED Status: Discharge Protocol: Document 02/01/22 11:10 SP (Rec: 02/01/22 17:00 SP [id number]) Subjective Physical Therapy Visit Type Type Treatment Note Visit Start Time 11:10 Visit Stop Time 11:55 Total Visit Minutes 45 Notes Spouse unavailable when arrived am tx, pt reported didn't plan on coming in until DC orders. Vitals take during tx: supine: 106/60 HR 84 SaO2 95% on RA. seated post room gait: 97/53 HR 88 Post gait: 111/64 HR 88 Nonsymptomatic throughout tx. Number of RELIGION INSTRUCTOR Visits 1 Physical Therapy Visit Comments Patient Comments Pt agreeable to working with therapy. Patient Goals go to rehab to improve strength before returning home . Therapy Pain Assessment Pain When Pain Assessed During Mobility Pain Present Pain Present Pain Reported Location Lower Back Intensity 2 Scale Used Numeric (0 - 10) Description With Movement Pain Behaviors Facial Grimacing Pain Management Techniques Distraction,Modification of Treatment,Re-positioning, Timing of Activity with Medications M4 PT-IP Mobility and Gait Start: 01/30/22 12:37 Freq: NEEDED Status: Discharge Protocol: Document 02/01/22 11:10 SP (Rec: 02/01/22 17:00 SP [id number]) PT-Bed Mobility Assessment Rolling Type of Rolling Log Rolling Level of Assist Standby Assistance Supine to Sit Supine to Sit Maximum Assistance,1 Person Assistance,Bedrails Scooting Scooting to Edge of Bed Contact Guard Assistance PT-Transfer Assessment Sit to and From Stand Sit to and from Stand Standby Assistance,Contact Guard Assistance,1 Person Assistance,Use of Upper Extremities Equipment Transfer Assistive Device Gait Belt,Front Wheeled Walker Orthotic/Prosthetic Devices or Brace: No Transfers Transfer Destination Chair Transfer Technique ambulated with FWW Transfer Ability Level of Assist Standby Assistance,Contact Guard Assistance,1 Person Assistance,Use of Upper Extremities Comments Mobility Comments LR L SBA, L SL to sit Max A x1 for trunk righting to sit. CGA- Min A scoot to EOB. Pt reports has high bed at home but can acquire stool to use. RELIGION INSTRUCTOR provide stool at EOB, able to ease step down using FWW/bed UE support Min A and 1 LE on step/ other reaching for floor. Pt walked around room CGA- SBA w/ FWW, returned to EOB, cued back stepping FWW over portable step then reach back bed and RLE back step support onto step and helped scoot back onto bed BUE then LLE Min A, at strategy can do at home when able. Pt returned to standing w/FWW Min A, gait further distance in hallway approx 230 ft around nursing station step over step Min- light contact UE WB on FWW CG> SBA, pt returned to chair in room SBA. Pt requires Max A for bed mob but does have a reclined to sleep in at this time. Pt is ok to return home with to assist her when medically cleared. Educated pt to request HHPT if feel needs more assist but at this time feel she is doing well. Gait Assessment Gait Gait Assistance Required: Standby Assistance,Contact Guard Assist Distance (Feet) 230 Able to Maintain Weight Bearing Status Yes During Gait Assistive Devices Assistive Device Gait Belt,Front Wheeled Walker Orthotic/Prosthetic Devices or Brace: No Gait Deviations General Gait Pattern Antalgic,Decreased Stride Length,Decreased Feet Clearance Factors Limiting Gait Function Factors Limiting Gait Function Decreased Activity Tolerance, Decreased Strength,Limited Range of Motion,Pain Comments Gait Comments Improved receiprocal stepping increase stride and stability with hallway turns, light/min UE support on FWW CG> SBA. Pt demonstrates small steps during turns, good carryover previous ed. Stair Climbing Assessment Comments Stair Climbing Comments no stairs need to assess. PT-Balance Assessment Sitting Balance and Reactions Static Sitting Balance Ability Normal Dynamic Sitting Balance Ability Good Standing Balance and Reactions Static Standing Balance Ability Good Dynamic Standing Balance Ability Good Device Used FWW M5 PT-IP Objective Assessments Start: 01/30/22 12:37 Freq: NEEDED Status: Discharge Protocol: Document 01/30/22 09:40 AB (Rec: 01/30/22 12:50 AB [id number]) Orientation Orientation/Cognition Level of Alertness Alert Orientation Name,Situation Language Function Ability No Deficits Noted Safety Awareness Decreased Safety Awareness Memory Description Short Term Impaired Gross Range of Motion Lower Extremity ROM Assessment Within Functional Limits Strength Lower Extremity Strength Assessment Right Impaired Hip 3+/5 Knee 4-/5 Coordination Assessment Gross Coordination Gross Coordination WNL Sensation Assessment Sensation Gross Sensation WNL Muscle Tone Muscle Tone WNL Yes M6 PT-IP Treatment Start: 01/30/22 12:37 Freq: NEEDED Status: Discharge Protocol: Document 02/01/22 11:10 SP (Rec: 02/01/22 17:00 SP [id number]) Physical Therapy Treatment Education Education Provided Precautions,Safety M7 PT-IP Assessment and Plan Start: 01/30/22 12:37 Freq: NEEDED Status: Discharge Protocol: Document 02/01/22 11:10 SP (Rec: 02/01/22 17:00 SP [id number]) PT Summary Assessment and Plan Potential Rehabilitation Potential Good Status of Condition at Evaluation Evolving Summary Impairments Pain,ROM,Strength,Balance, Coordination,Sensation,Tone, Cognition,Bed Mobility, Transfers,Gait,Activity Tolerance Progress Towards Goals Progressing Toward Goals Assessment Summary Pt requires Max A x1 for L SL> sit heavy trunk support required. Pt states has recliner that will sleep in for now. Able to get on/off bed w/ step stool suggestion/ participation assessment due to high bed CG-Min A x1. STS/ transfer/ gait w/FWW CG> SBA up to 230 ft, stable. Pt is ok to return home with spouse to assist her when medically cleared. Goals Bed Mobility Goal Independent Transfer Goal Independent,Front Wheeled Walker Gait Goal Independent,Front Wheel Walker Gait Distance 200 Other Goals ambulation using 4WW SBA 250 ft Days to Meet Goals 5 Frequency of Treatment Frequency Of Treatment Twice a Day Treatment Plan Physical Therapy Treatment Plan Bed Mobility Training,Transfer Training,Gait Training, Therapeutic Exercise,Balance Retraining,Post Op Education, Discharge Planning,Hot or Cold Pack,Neuromuscular Re-ed, Coordination Retraining,Manual Therapy Other Recommendations and Next Treatment bed mob w/ spouse Focus Precautions Lumbar Precautions Log Roll,No Twisting,Limit Bending,Lifting Restriction of 10 lbs,Gait Belt above Incisional Area Other Precautions good recall precautions Recommendations To Nursing Amount of Assist Needed 1 Person Assist Discharge Recommendations PT Discharge Recommendations Home with Assistance,Home with 24/7 Assist Available Transportation Needs at Discharge Private Vehicle
[2022-02-01 12:15] VITALS: BP 111/57; PULSE 94; RESP 19; TEMP 36.8; O2SAT 96
--- NOTE | 2022-02-01 12:57 | PC.NURSE ---
Discharge instructions and home care handouts reviewed with patient. She states understanding and has no further questions at this time. IV dc'd intact. She states she has her follow up appointments scheduled already, and prescriptions were sent over electronically yesterday to her preferred pharmacy. Instructed to call surgeon's office with questions or concerns. Escorted out via wheelchair with all her belongings by ENTRANCE GUARD to be discharged to home.
--- NOTE | 2022-02-01 14:07 | CM.DPC ---
DCP Discharge Home Per Ortho MD, pt medically stable to d/c home today as pain is controlled and pt has worked with PT. Per PT, recommending safe d/c home with spouse assist and pt has recliner on main level to sleep in if needed once home. Completed CG training with spouse bedside. per RN, d/c instruction given to pt and spouse and no noted concerns. Plan: Patient to d/c home via spouse POV and assist and outpt follow up with Ortho. No further SW needs at this time. FAUSTINA Luu
== END 2022-02-01 13:14 | disposition home or self-care (01) ==
LOC: OR 01-31 00:14 → AC 01-31 00:14
PROVIDERS: Admitting Provider Orthopaedic Surgery Orthopaedic Surgery of the Spine; PCP Family Medicine; Referring Provider Orthopaedic Surgery Orthopaedic Surgery of the Spine; Visit Provider Orthopaedic Surgery Orthopaedic Surgery of the Spine
PROC: (CPT 22633; principal; 2022-01-29 10:45)
DX: M48.062 Spinal stenosis, lumbar region with neurogenic claudication (principal); M43.16 Spondylolisthesis, lumbar region; M47.27 Other spondylosis with radiculopathy, lumbosacral region; M96.1 Postlaminectomy syndrome, not elsewhere classified; Z86.73 Personal history of transient ischemic attack (TIA), and cerebral infarction without residual deficits; E78.5 Hyperlipidemia, unspecified; I10 Essential (primary) hypertension; Z20.822 Contact with and (suspected) exposure to COVID-19
CPT/HCPCS: 22633; 22634 ×2; 22853 ×3; 63052; 63053 ×2; 20939; 22842; 36415; 72100; 72131; 76000; 85014; 85018; 87635; 97116; 97162; 97165; 97530; 97535; C9803; G0378; C1713; C1831; C9290; J0131; J0171; J0330; J0690; J1100; J1170; J2405; J2704; J3010; J3410